=== PATIENT | female | born 1955 | race Caucasian/White ===

== ENCOUNTER 2016-09-15 13:31 | Emergency (ER) | payer OTHER ==
[~2016-09-15] VITALS: Ht 157.5 cm; Wt 70.0 kg
[~2016-09-15 13:31] MED LIST: HTN MED; KEFLEX; OMEP20CA16; VIC
[2016-09-15 13:34] VITALS: Ht 157.5 cm; Wt 70.0 kg
[2016-09-15] MEDS ORDERED: ONDANSETRON (ODT) 4 MG TAB ODT STA (13:51)
[2016-09-15] MEDS ORDERED: IBUPROFEN 800 MG TAB PO ONE (14:00)
[2016-09-15] MEDS ORDERED: BENA20TA48 PO (14:14)
[2016-09-15] MEDS ORDERED: GABA100C14 PO (14:14)
[2016-09-15] MEDS ORDERED: METF500T3 PO (14:14)
[2016-09-15] MEDS ORDERED: IBUP800T25 PO (14:40)
[2016-09-15] MEDS ORDERED: ONDA4TAB14 PO (14:40)
--- NOTE | 2016-09-15 14:44 | ERD ---
ER Documentation Chief Complaint Date/Time DATE: 09/15/16 TIME: 14:42 Chief Complaint DIARRHEA AND VOMITING X 3 DAYS HPI Very pleasant 61-year-old female, [employer] used with family member. The patient describes approximately 2-3 days of symptoms that include nonbloody nonbilious emesis, loose watery stool. Occasional mild abdominal cramping with diarrhea but no abdominal pain currently. No fevers, no travel, no sick contacts, no new food or ingestion. Patient is able to tolerate liquids and is urinating. ROS All systems reviewed and are negative except as per history of present illness. Medications Home Meds Active Scripts Ibuprofen* (Motrin*) 800 Mg Tab, 800 MG PO Q6H Y for PAIN AND OR ELEVATED TEMP, #30 TAB Prov:ABHINAV PERDOMO MD 09/15/16 Ondansetron (Ondansetron Odt) 4 Mg Tab.rapdis, 4 MG PO Q6H Y for NAUSEA AND/OR VOMITING, #30 TAB Prov:ABHINAV PERDOMO MD 09/15/16 Reported Medications Benazepril Hcl* (Benazepril Hcl*) 20 Mg Tablet, 20 MG PO DAILY, #30 TAB 09/15/16 Gabapentin* (Gabapentin*) 100 Mg Capsule, 100 MG PO QHS, #90 CAP 09/15/16 Metformin Hcl* (Metformin Hcl* ER) 500 Mg Tab.sr.24h, 500 MG PO DAILY, #30 TAB 09/15/16 Discontinued Reported Medications Acetaminophen/Hydrocodone (Vicodin) 1 Tab Tab 03/17/11 [Keflex] No Conflict Check 03/17/11 Omeprazole* (Omeprazole*) 20 Mg Capsule. 03/17/11 [Htn Med] No Conflict Check 03/17/11 [None] No Conflict Check 03/15/11 Allergies Allergies: Coded Allergies: No Known Drug Allergies (Verified Allergy, Unknown, 09/15/16) PMhx/Soc History of Surgery: Yes (NASAL CYST REMOVED) Anesthesia Reaction: No Hx Neurological Disorder: No Hx Respiratory Disorders: No Hx Cardiac Disorders: Yes (HTN) Hx Psychiatric Problems: No Hx Miscellaneous Medical Probl: No Hx Alcohol Use: No Hx Substance Use: No Hx Tobacco Use: No Smoking Status: Never smoker FmHx Family History: No diabetes Physical Exam Vitals Vital Signs Date Time Temp Pulse Resp B/P Pulse Ox O2 Delivery O2 Flow Rate FiO2 09/15/16 13:34 97.8 98 20 150/77 99 Physical Exam General: Well developed, well nourished, no acute distress Head: Normocephalic, atraumatic. Eyes: Pupils equally reactive, EOM intact ENT: Moist mucous membranes Neck: Supple, no lymphadenopathy Respiratory: Lungs clear bilaterally, no distress Cardiovascular: RRR, no murmurs, rubs, or gallops Abdominal: Soft, non-tender, non-distended, no peritoneal signs : Deferred MSK: No edema, no unilateral swelling, 5/5 strength Neurologic: Alert and oriented, moving all extremities, normal speech, no focal weakness, no cerebellar signs Skin: No rash Psych: Normal mood Results 24 hrs Current Medications Medications (Trade) Dose Ordered Sig/Jeff Route PRN Reason Start Time Stop Time Status Last Admin Dose Admin Ondansetron HCl (Zofran Odt) 4 mg ONCE STAT ODT 09/15/16 13:51 09/15/16 13:52 DC 09/15/16 14:30 Ibuprofen (Motrin) 800 mg ONCE ONCE PO 09/15/16 14:00 09/15/16 14:01 DC 09/15/16 14:30 Procedures/MDM MEDICAL DECISION MAKING: The patient's symptoms are very consistent with likely viral process. The patient has a benign abdominal exam with normal vital signs. She has no evidence of significant dehydration. She is still urinating. The patient is 61 years old I do not believe this is consistent with acute intra-abdominal process given normal vital signs, benign abdominal exam. I do not believe the laboratory testing is going to be beneficial at this time. No evidence of significant dehydration. I did however off her IV fluids and IV Zofran however the patient preferred oral medication alone. I believe this is reasonable. The patient has tolerated oral intake in the emergency department. The patient was given Zofran, Motrin, p.o. challenge. At this time I feel the patient is safe for discharge. The patient should return for any worsening symptoms, inability to tolerate oral intake. I kept the patient and/or family informed of laboratory and diagnostic imaging results throughout the emergency room course. DISPOSITION PLAN: We discussed follow up with the patient's primary care doctor within 24 to 48 hours as needed. We also discussed return to the emergency room for worsening symptoms or worsening condition. Outpatient referral: None required Discharge Medications: Motrin, Zofran Departure Diagnosis: Primary Impression: Nausea vomiting and diarrhea Condition: Stable Patient Instructions: Nausea and Vomiting-Adult Referrals: CHAZ SALGADO MD Additional Instructions: Llame al doctor keon weathers (Referral Sources) MAANA y [facility] [place] CARLOS PARA DENTRO DE [place] SEMANA. Dgale a la secretaria que nosotros le instruimos hacer esta carlos.Avise o llame si massey condicin se empeora antes de la carlos. ABHINAV PERDOMO MD Sep 15, 2016 14:44
== END 2016-09-15 15:09 | disposition home or self-care (01) ==
LOC: E/R 13:31
DX: R19.7 Diarrhea, unspecified (principal); R11.2 Nausea with vomiting, unspecified; I10 Essential (primary) hypertension; Z79.84 Long term (current) use of oral hypoglycemic drugs
CPT/HCPCS: Z7610 ×2; 99283